=== PATIENT | female | born 1940 | race African-American/Black ===

== ENCOUNTER 2020-01-23 14:27 | Outpatient (REF) | payer OTHER, MEDICAID, SELFPAY ==
[2020-01-24 15:30] LABS: COVID-19 RT-PCR Result Not Detected ((See Note))
== END 2020-01-23 14:47 ==
LOC: LBN 14:27
PROVIDERS: Visit Provider Nurse Practitioner Adult Health
DX: Z20.828 Contact with and (suspected) exposure to other viral communicable diseases (principal)
CPT/HCPCS: U0003

== ENCOUNTER 2020-01-30 17:54 | Outpatient (REF) | payer MEDICARE, MEDICAID, SELFPAY ==
[2020-02-02 08:52] LABS: SARS-CoV-2 RNA Not Detected (NotDetected); SARS-CoV-2 RNA Source Nasal/Nares
== END 2020-01-30 18:14 ==
LOC: LBN 17:54
PROVIDERS: Visit Provider Nurse Practitioner Adult Health
DX: Z11.59 Encounter for screening for other viral diseases (principal)
CPT/HCPCS: U0003

== ENCOUNTER 2020-04-09 12:05 | Outpatient (REF) | payer OTHER, MEDICAID, SELFPAY ==
[2020-04-09 13:52] LABS: Abs Immature Grans 0.01 10^3/uL (0.0-0.06); Absolute Basophil Count 0.04 10^3/uL (0.0-0.2); Absolute Eosinophil Count 0.17 10^3/uL (0.0-0.7); Absolute Lymphocyte Count 3.16 10^3/uL (1.2-3.4); Absolute Monocyte Count 0.88 10^3/uL (0.1-0.8); Absolute Neutrophil Count 4.11 10^3/uL (1.2-6.7); Basophils % 0.5; HGB 13.6 g/dL (11.2-15.7); Immature Grans % 0.1; Lymphocytes % 37.8; MCH 29.6 pg (27.0-33.0); MCHC 32.4 % (32.0-36.0); MCV 91.5 fL (80-95); MPV 9.7 fL (8.0-11.0); Monocytes % 10.5; Neutrophils % 49.1; Nucleated RBC 0 %; Platelet Count 242 10^3/uL (130-400); RBC 4.59 10^6/uL (3.93-5.22); RDW 12.8 % (11.7-14.6); RDW-SD 42.9 fL; WBC 8.37 10^3/uL (4.4-10.8)
[2020-04-09 14:34] LABS: ALT 22 U/L (14-59); AST 32 U/L (15-37); Albumin 3.3 g/dL (3.4-5.0); Alkaline Phosphatase 163 U/L (46-116); Anion Gap 5.4 mmol/L (3-11); BUN 6 mg/dL (7-18); Bilirubin, Total 0.3 mg/dL (0.2-1.0); CO2 33.6 mmol/L (21.0-32.0); CREATININE 0.86 mg/dL (0.55-1.02); Chloride 106 mmol/L (98-107); Folate > 20.0 ng/mL (8.6-20.0); Glucose 74 mg/dL (74-106); Potassium 3.2 mmol/L (3.5-5.1); Sodium 145 mmol/L (136-145); Total Protein 6.7 g/dL (6.4-8.2); Vitamin B12 747 pg/mL (193-986)
== END 2020-04-09 12:25 ==
LOC: LBN 12:05
PROVIDERS: PCP Nurse Practitioner Adult Health; Visit Provider Nurse Practitioner Adult Health
DX: D51.9 Vitamin B12 deficiency anemia, unspecified (principal); E27.40 Unspecified adrenocortical insufficiency
CPT/HCPCS: 80053; 82607; 82746; 84443; 85025

== ENCOUNTER 2020-04-09 14:33 | Outpatient (CLI) | payer OTHER, MEDICAID, SELFPAY ==
--- NOTE | 2020-04-09 14:30 | RT.EKG_ITS ---
APPROVED REPORT Exam: Resting ECG Patient Location: O HR:72 bpm ECG Measurements Heart Rate 72 AXIS WA 170 P 57 QRSd 144 QRS 16 QT 428 T 59 QTc 468 Conclusion Sinus rhythm...normal P axis, V-rate 60- 99 Left bundle branch block...QRSd>120, broad/notched R ST elevation secondary to IVCD...Multiple VCG criteria
== END 2020-04-09 14:53 ==
PROVIDERS: PCP Nurse Practitioner Adult Health; Visit Provider Family Medicine
DX: I44.7 Left bundle-branch block, unspecified (principal); Z13.6 Encounter for screening for cardiovascular disorders; Z02.89 Encounter for other administrative examinations
CPT/HCPCS: 93005; 93010

== ENCOUNTER 2020-04-12 07:10 | Outpatient (REF) | payer OTHER, MEDICAID, SELFPAY | END 2020-04-12 07:30 | LOC: LBN 07:10 | PROVIDERS: PCP Nurse Practitioner Adult Health; Visit Provider Family Medicine | DX: E27.40 Unspecified adrenocortical insufficiency (principal) | CPT/HCPCS: 82533 ==

== ENCOUNTER 2020-04-19 08:12 | Outpatient (REF) | payer OTHER, MEDICAID, SELFPAY ==
[2020-04-19 09:05] LABS: Anion Gap 4.3 mmol/L (3-11); BUN 9 mg/dL (7-18); CO2 29.7 mmol/L (21.0-32.0); CREATININE 0.91 mg/dL (0.55-1.02); Calcium 9.1 mg/dL (8.5-10.1); Chloride 110 mmol/L (98-107); Estimated GFR 59.94 (mL/min/1.73m2); Glucose 86 mg/dL (74-106); Potassium 3.9 mmol/L (3.5-5.1); Sodium 144 mmol/L (136-145)
== END 2020-04-19 08:32 ==
LOC: LBN 08:12
PROVIDERS: PCP Nurse Practitioner Adult Health; Visit Provider Nurse Practitioner Adult Health
DX: E27.49 Other adrenocortical insufficiency (principal)
CPT/HCPCS: 80048; 82533; 82024

== ENCOUNTER 2020-05-15 16:51 | Outpatient (REF) | payer OTHER, MEDICAID, SELFPAY ==
[2020-05-17 16:19] LABS: COVID-19 RT-PCR Result Not Tested ((See Note))
== END 2020-05-15 16:52 | disposition home or self-care (01) ==
LOC: LBN 16:51
PROVIDERS: PCP Nurse Practitioner Adult Health; Visit Provider Nurse Practitioner Adult Health
DX: Z20.822 Contact with and (suspected) exposure to COVID-19 (principal)
CPT/HCPCS: U0003

== ENCOUNTER 2020-05-18 19:54 | Outpatient (REF) | payer OTHER, MEDICAID, SELFPAY ==
[2020-05-21 17:47] LABS: COVID-19 RT-PCR Result Not Detected ((See Note))
== END 2020-05-18 19:55 | disposition home or self-care (01) ==
LOC: LBN 19:54
PROVIDERS: PCP Nurse Practitioner Adult Health; Visit Provider Nurse Practitioner Adult Health
DX: Z20.822 Contact with and (suspected) exposure to COVID-19 (principal)
CPT/HCPCS: U0003

== ENCOUNTER 2020-08-09 01:55 | Outpatient (CLI) | payer OTHER, MEDICAID, SELFPAY ==
--- NOTE | 2020-08-09 08:45 | RT.EKG_ITS ---
APPROVED REPORT Exam: Resting ECG Reason for Exam: edema in left arm Patient Location: O HR:83 bpm ECG Measurements Heart Rate 83 AXIS OH 145 P 20 QRSd 130 QRS 41 QT 429 T 56 QTc 504 Conclusion Sinus rhythm...normal P axis, V-rate 60- 99 Left bundle branch block...QRSd>120, broad/notched R
== END 2020-08-09 01:56 | disposition home or self-care (01) ==
LOC: RT 01:55
PROVIDERS: PCP Nurse Practitioner Adult Health; Visit Provider Family Medicine
DX: I49.9 Cardiac arrhythmia, unspecified (principal); E27.40 Unspecified adrenocortical insufficiency; R60.0 Localized edema
CPT/HCPCS: 93005; 93010

== ENCOUNTER 2020-08-17 03:57 | Outpatient (CLI) | payer OTHER, MEDICAID, SELFPAY ==
--- NOTE | 2020-08-17 08:30 | DI.CT_ITS ---
Exam(s) CT CHEST/ABD/PEL W EXAM: CT CHEST/ABD/PEL W CLINICAL HISTORY: ABNL WT LOSS, R63.4,C50.919 TECHNIQUE: CT examination of the chest, abdomen, and pelvis was performed utilizing intravenous inf usion of 100 cc of Omnipaque 350 with biphasic hepatic imaging. Oral contrast was also administered. COMPARISON: No exams were available for comparison FINDINGS: There are vascular clips in the left breast and left axilla, please correlate regarding the nature of the prior surgery and history of breast carcinoma. There are moderate pulmonary emphysematous changes. There are areas of apparent traction bronchiecta sis particularly in the right upper lobe where there is prominent peripheral scarring. No prior imag es available for comparison. No dominant mass identified in either lung. Multiple small calcified g ranulomas noted. No mediastinal or hilar adenopathy. No axillary or supraclavicular adenopathy. Tracheobronchial feng e appears intact. No evidence of pulmonary embolic disease. Unremarkable appearance of thoracic aorta and major branch vessels. There is question of wall thickening at the gastroesophageal junction with possibility of mucosal ulc eration. There is also question of wall thickening of the gastric antrum. Correlation with endoscop y suggested to exclude GE junction neoplasm or inflammatory process. The liver appears normal with couple of tiny presumed hepatic cysts noted.. Spleen is unremarkable in appearance. Pancreas appears intact. Adrenals appear normal. Kidneys are unremarkable in appearance with no renal mass, hydronephrosis, or nephrolithiasis. Incid ental apparent left renal parapelvic cysts noted. Abdominal aorta and major visceral branches appear intact. No focal bowel pathology. Appendix is normal. No evidence of diverticulitis. No abdominal or pelvic adenopathy. No significant abdominal wall hernia. No focal bony lesion identified on scanning of the chest, abdomen, and pelvis. There are bilateral hip prostheses causing marked artifact which limits evaluation of the pelvis. Th ere is a heterogeneous mid pelvic mass measuring up to about 6 cm in diameter, this may represent a u terine fibroid. Urinary bladder is essentially nonvisualized. The possibility that the mass as described originates from ovary rather than uterus is not excluded. Correlation with pelvic ultrasound recommended. IMPRESSION: Indeterminate mid pelvic mass, incompletely imaged due to artifact from hip prostheses. Probable devan rine fibroid but other etiology not excluded, pelvic ultrasound requested for correlation. Note is also made of question wall thickening/mucosal irregularity at the gastroesophageal junction a nd possible wall thickening of the gastric antrum, neoplastic disease at the GE junction not excluded , correlation with endoscopy recommended. RADIATION DOSE DELIVERED: 1,840.57mGy.cm Total DLP 1,840.57mGy.cm Total DLP RADIATION OPTIMIZATION: All CT scans at this facility use at least one of these dose optimization te chniques: automated exposure control; mA and/or kV adjustment per patient size (includes targeted exa ms where dose is matched to clinical indication); or iterative reconstruction.
[2020-08-17 09:02] LABS: Anion Gap 6.2 mmol/L (3-11); BUN 9 mg/dL (7-18); CO2 29.8 mmol/L (21.0-32.0); CREATININE 1.1 mg/dL (0.55-1.02); Calcium 8.6 mg/dL (8.5-10.1); Chloride 108 mmol/L (98-107); Estimated GFR 48.16 (mL/min/1.73m2); Glucose 84 mg/dL (74-106); Sodium 144 mmol/L (136-145)
[2020-08-17] MEDS: Omnipaque 350 MG/ML 50 ML BTL IJ (09:05)
[2020-08-17] MEDS: Breeza Beverage 473 ML BTL PO (09:07)
[2020-08-17] MEDS: Omnipaque 350 MG/ML 100 ML BTL IJ (10:08)
[2020-08-17] MEDS: Normal Saline - Diluent 50 ML VIAL IV (10:09)
== END 2020-08-17 04:17 ==
PROVIDERS: Family Medicine; PCP Nurse Practitioner Adult Health; Visit Provider Nurse Practitioner Family
DX: R63.4 Abnormal weight loss (principal); Z85.3 Personal history of malignant neoplasm of breast; E27.9 Disorder of adrenal gland, unspecified; Z96.643 Presence of artificial hip joint, bilateral; R19.09 Other intra-abdominal and pelvic swelling, mass and lump; K22.8 Other specified diseases of esophagus
CPT/HCPCS: 74177; 80048; 71260; J3490; Q9967

== ENCOUNTER 2020-10-10 13:13 | Emergency (ER) | payer OTHER, MEDICAID, SELFPAY ==
[2020-10-10] VITALS (15 sets, daily range): BP systolic 168–181; BP diastolic 102–111; PULSE 71–94; RESP 6–24; TEMP 36.1; O2SAT 95–98
--- NOTE | 2020-10-10 13:15 | RT.EKG_ITS ---
APPROVED REPORT Exam: Resting ECG Reason for Exam: fall Patient Location: E HR:83 bpm ECG Measurements Heart Rate 83 AXIS RI 160 P 33 QRSd 132 QRS 26 QT 401 T 63 QTc 473 Conclusion Sinus rhythm...normal P axis, V-rate 60- 99 Atrial premature complex...SV complex w/ short R-R interval Left bundle branch block...QRSd>120, broad/notched R ST elevation secondary to IVCD...Multiple VCG criteria. Sinus. LBBB. No STEMI. No change from previous. I have reviewed and interpreted ECG and agree with software generated interpretation.
--- NOTE | 2020-10-10 13:21 | ED.GENADUL_ITS ---
Discharge Plan Disposition Patient Disposition: HOME Condition: Stable Discharge Details Clinical Impression: Closed head injury, Fall at halfway Primary Care Provider: Razia Tejeda ED Provider: Germaine Arango Home Meds and New Rx's Prescriptions: Continued divalproex 125 mg tablet,delayed release (DR/EC) 125 mg PO DAILY RF: 0 divalproex 125 mg tablet,delayed release (DR/EC) 250 mg PO HS RF: 0 bisacodyl [Dulcolax (bisacodyl)] 10 mg suppository [address] DAILY PRNRF: 0 Fleet Enema 19-7 gram/118 mL enema [address] ONCE RF: 0 folic acid 1 mg tablet 1 mg PO DAILY RF: 0 hydrocortisone 5 mg tablet 2.5 mg PO DAILY RF: 0 hydrocortisone 5 mg tablet 5 mg PO DAILY RF: 0 hydrocortisone 5 mg tablet 10 mg PO DAILY RF: 0 ibuprofen 200 mg tablet 200 mg PO Q6H PRNRF: 0 letrozole 2.5 mg tablet 2.5 mg PO DAILY RF: 0 magnesium hydroxide 400 mg/5 mL suspension 30 ml PO DAILY PRNRF: 0 melatonin 5 mg capsule 5 mg PO HS PRNRF: 0 memantine 5 mg tablet 5 mg PO QAM RF: 0 midodrine 10 mg tablet 10 mg PO DAILY RF: 0 mirtazapine 15 mg tablet 15 mg PO QHS RF: 0 risperidone 0.25 mg tablet 0.25 mg PO BID RF: 0 thiamine HCl (vitamin B1) 100 mg tablet 100 mg PO DAILY RF: 0 venlafaxine 150 mg capsule,extended release 24hr 150 mg PO DAILY RF: 0 sennosides-docusate sodium 8.6-50 mg tablet 1 tab-cap PO QHS RF: 0 Discharge Instructions Instructions: Head Injury (ED) Additional Instructions: Your urine sample noted white blood cells which may mean this is a contaminated sample or may indicate an infection. You will be notified if an infection is present once your urine culture results are available in the next few days. Drink plenty of fluids and get plenty of rest. You can apply ice to your head as needed and directed for pain for 20 minutes at a time. You can continue ibuprofen as needed and directed for pain. Follow-up with your primary care doctor in 1 week for reevaluation and for referral to dermatology for your chronic facial and neck skin rash. Return to the emergency department with any worsening or new concerning symptoms. 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 Fall was unwitnessed and patient does not recall the details of the fall. No evidence of head trauma. Lungs clear. Abdomen soft nontender. No midline spinal tenderness. No focal deficits. Considering patient's age and history, will obtain screening labs, EKG, urinalysis, CT head and cervical spine, chest x-ray and pelvis x-ray. Labs and imaging reviewed. Normal white blood cell count. Normal electrolytes. Urinalysis notes 5-10 WBCs, urine culture sent. CT head and cervical spine negative. Chest x-ray and pelvis x-ray negative. Patient given fluids and Toradol and admitted to improvement of pain. Will discharge back to the rehab. Advised to follow up with the primary care doctor for re-evaluation. Usual and customary return precautions given prior to discharge. Medical Records Medical records reviewed: Yes I reviewed the patient's medical records. Imaging Data Radiologic Study: Radiologist's impression: CT HEAD CERVICAL SPINE WO CLINICAL HISTORY: s/p head injury, r/o acute injury. TECHNIQUE: Imaging Protocol: Axial computed tomography images with coronal and sagittal reformatted images were created and reviewed COMPARISON: No exams were available for comparison FINDINGS: BRAIN: There are no skull fractures nor fluid in the visualized paranasal sinuses. There is no evidence of intracranial hemorrhage, mass effect, or shift of midline structures. There are no extra-axial fluid collections. The ventricles are not enlarged or shifted and there is no blood within the ventricular system nor within the basal cisterns. There is some mild periventricular hypodensity consistent with chronic small vessel disease. CERVICAL SPINE: There is evidence of previous surgery with multilevel fusion wires around posterior osseous elements at C 5, C6, C7, and T1 levels. No evidence of acute fractures nor listhesis at these levels. There is discontinuity in the anterior arch of C1 which is developmental. There is also discontinuity on the right side of the posterior arch of C1 which is also developmental. No compromise of the canal at this level. No acute fractures evident. Multilevel facet arthropathy in the spine above the fusion levels. This is evident at C2-3 and C3-4 levels. There is no significant facet joint malalignment. No significant osseous lesions evident. Scarring in the right lung apex incidentally noted. IMPRESSION: No acute intracranial findings on this noninfused CT scan of the brain. No evidence of acute cervical spine fracture, malalignment, nor acute compromise of the cervical spinal canal. Multilevel posterior fusion surgery as described above in the mid-lower cervical spine as well as developmental discontinuity of C1 arch anteriorly and on the right side. XR PELVIS AP CLINICAL HISTORY: s/p fall, r/o fx. TECHNIQUE: 2D digital imaging was performed. COMPARISON: CT CT CHEST/ABD/PEL W from 08/17/[address] CHEST/ABD/PEL W from 08/17/2020 FINDINGS: Bilateral hip prostheses are noted. There is deformity of the right greater trochanter which is unchanged from prior CT scan. Lucency around the upper femoral component on the left side is also unchanged from 08/17/2020 CT scan There is no evidence of acute fracture on either side. Finding in the ischial tuberosity right size as chronic appearance. Sacroiliac joints appear unremarkable. IMPRESSION: Findings as above but no acute fractures evident. XR CHEST 2V PA LATERAL CLINICAL HISTORY: s/p fall, r/o acute fx. TECHNIQUE: 2D digital imaging was performed. COMPARISON: No exams were available for comparison FINDINGS: Heart size is normal. The mediastinum is not widened. Lungs are clear. No infiltrates nor pleural effusions. Left shoulder prosthesis. Posterior fusion rods in the lower cervical upper thoracic spine noted. IMPRESSION: No acute pulmonary findings. Lab Data Lab results reviewed: Yes I reviewed the patient's lab results. Labs: 10/10/20 14:00 Urine - Reflex from Ua Urine Culture - Pending Laboratory Tests Range/Units 10/10/20 10/10/20 10/10/20 13:45 13:45 14:00 WBC (4.4-10.8) 10^3/uL 7.55 RBC (3.93-5.22) 10^6/uL 4.54 Hgb (11.2-15.7) g/dL 13.2 Hct (36.0-46.0) % 40.8 MCV (80-95) fL 89.9 MCH (27.0-33.0) pg 29.1 MCHC (32.0-36.0) % 32.4 RDW (11.7-14.6) % 13.8 Plt Count (130-400) 10^3/uL 204 MPV (8.0-11.0) fL 9.1 Immature Gran % 0.5 Neutrophils % 73.1 Lymphocytes % 18.3 Monocytes % 7.3 Eosinophils % 0.4 Basophils % 0.4 Nucleated RBC % % 0 Absolute Neutrophils (1.2-6.7) 10^3/uL 5.52 Absolute Lymphocytes (1.2-3.4) 10^3/uL 1.38 Absolute Monocytes (0.1-0.8) 10^3/uL 0.55 Absolute Eosinophils (0.0-0.7) 10^3/uL 0.03 Absolute Basophils (0.0-0.2) 10^3/uL 0.03 Sodium (136-145) mmol/L 142 Potassium (3.5-5.1) mmol/L 3.6 Chloride (98-107) mmol/L 106 Carbon Dioxide (21.0-32.0) mmol/L 26.1 Anion Gap (3-11) mmol/L 9.9 BUN (7-18) mg/dL 9 Creatinine (0.55-1.02) mg/dL 1.2 H Estimated GFR/1.73 m2 (mL/min/1.73m2) 43.56 Glucose (74-106) mg/dL 104 Calcium (8.5-10.1) mg/dL 9.7 Total Bilirubin (0.2-1.0) mg/dL 0.7 AST (15-37) U/L 19 ALT (14-59) U/L 17 Alkaline Phosphatase (46-116) U/L 86 Total Protein (6.4-8.2) g/dL 7.4 Albumin (3.4-5.0) g/dL 3.6 Urine Color (Yellow) Yellow Urine Clarity (Clear) Clear Urine pH (5-8) 7.0 Ur Specific [place] (1.005-1.025) 1.015 Urine Protein (Negative) mg/dL Negative Urine Ketones (Negative) mg/dL Negative Urine Blood (Negative) Trace-intact H Urine Nitrite (Negative) Negative Urine Bilirubin (Negative) Negative Urine Urobilinogen (Up TO 0.2) EU/dL 0.2 Ur Leukocyte Esterase (Negative) Small H Urine RBC (0-2) HPF 3-5 H Urine WBC (0-5) HPF 5-10 Ur Epithelial Cells (Negative) HPF Rare Urine Crystals (Negative) HPF Negative Urine Bacteria (Negative) HPF Rare Urine Casts (Negative) LPF Negative Urine Mucus (Negative) Trace Ur Culture Indicated? Yes Urine Glucose (Negative) mg/dL Negative ECG Data Attestation: I personally reviewed and interpreted this ECG (s) as follows: Interpretation: rate of 83bpm, sinus, LBBB, no change from previous, No STEMI. HPI General Mode of arrival: ambulatory . Date/Time Provider Initiated Documentation: 10/10/20 13:20 . Limitations to Documentation: no limitations . Information obtained by: patient . HPI Narrative: Patient is a 79-year-old female from the [facility] rehab who presents for a fall out of her wheelchair. Patient does not recall the fall. Staff reported that patient had an unwitnessed fall out of her wheelchair when she fell forward striking her head. Patient complained of headache. There was no report of LOC or vomiting. Patient denies any other acute complaints. She does have dementia at baseline. She denies any chest pain, shortness of breath, abdominal pain, neck or back pain. Related Data Home Medications Medication Instructions Recorded Confirmed bisacodyl 10 mg rectal suppository [address] DAILY PRN 10/02/20 10/10/20 divalproex 125 mg tablet,delayed 125 mg PO DAILY tab 10/02/20 10/10/20 release divalproex 125 mg tablet,delayed 250 mg PO HS tab 10/02/20 10/10/20 release folic acid 1 mg tablet 1 mg PO DAILY 10/02/20 10/10/20 hydrocortisone 5 mg tablet 2.5 mg PO DAILY tab 10/02/20 10/10/20 hydrocortisone 5 mg tablet 5 mg PO DAILY tab 10/02/20 10/10/20 hydrocortisone 5 mg tablet 10 mg PO DAILY tab 10/02/20 10/10/20 ibuprofen 200 mg tablet 200 mg PO Q6H PRN 10/02/20 10/10/20 letrozole 2.5 mg tablet 2.5 mg PO DAILY 10/02/20 10/10/20 magnesium hydroxide 400 mg/5 mL 30 ml PO DAILY PRN ml 10/02/20 10/10/20 oral suspension melatonin 5 mg capsule 5 mg PO HS PRN cap 10/02/20 10/10/20 memantine 5 mg tablet 5 mg PO QAM 10/02/20 10/10/20 midodrine 10 mg tablet 10 mg PO DAILY tab 10/02/20 10/10/20 mirtazapine 15 mg tablet 15 mg PO QHS 10/02/20 10/10/20 risperidone 0.25 mg tablet 0.25 mg PO BID 10/02/20 10/10/20 sennosides 8.6 mg-docusate sodium 1 tab-cap PO QHS 10/02/20 10/10/20 50 mg tablet sodium phosphates 19 gram-[address] ONCE 10/02/20 10/10/20 gram/118 mL enema thiamine HCl (vitamin B1) 100 mg 100 mg PO DAILY 10/02/20 10/10/20 tablet venlafaxine 150 mg 150 mg PO DAILY 10/02/20 10/10/20 capsule,extended release 24 hr Allergies Allergy/AdvReac Type Severity Reaction Status Date / Time acetaminophen Allergy Unknown unknown Verified 10/02/20 14:39 oxycodone Allergy Unknown unknown Verified 10/02/20 14:39 Penicillins Allergy Unknown unknown Verified 10/02/20 14:39 propoxycaine Allergy Unknown unknown Verified 10/02/20 14:39 Review of Systems All systems reviewed & are unremarkable except as noted in HPI and below Constitutional Constitutional: Reports as per HPI, Denies chills, Denies fever(s) and Reports headache(s) Eyes Eyes: Denies blurry vision ENT Ears, Nose, Mouth, and Throat: Denies dizziness, Reports headache(s), Denies sore throat and Denies throat swelling Cardiovascular Cardiovascular: Denies chest pain and Denies dyspnea Respiratory Respiratory: Denies cough and Denies dyspnea Gastrointestinal Gastrointestinal: Denies abdominal pain, Denies diarrhea and Denies vomiting Genitourinary Genitourinary: Denies hematuria and Denies dysuria Musculoskeletal Musculoskeletal: Denies back pain and Denies numbness Integumentary/Breasts Skin/Breast: Denies lesions and Denies rash Neurologic Neurologic: Denies dizziness, Reports headache(s), Denies localized weakness and Denies numbness Allergic/Immunologic Allergic/Immunologic: Denies throat swelling [facility] Medical History (Updated 10/10/20 @ 15:28 by Germaine Arango DO) Personal history of breast cancer Social History Smoking risk assessment performed?: No Alcohol Intake: former Exam Const General: cooperative and no acute distress HENMT Head: normal to inspection, no palpable skull fracture, normocephalic and atraumatic Ears: hearing grossly normal bilaterally, external ears normal and TM's normal bilaterally General nose exam: external nose normal Face and sinus: normal facial exam Mouth: oral mucosae normal Teeth and gingiva: dentures Throat: posterior oropharynx normal Eyes General: appearance normal, both eyes and all related structures Pupils: PERRL EOM: EOM intact bilaterally Neck Neck: normal visual inspection and No submandibular swelling Lymphatic: no lymphadenopathy noted Chest Chest: normal inspection of the chest and no tenderness Resp Effort & Inspection: normal respiratory effort and able to speak in complete sentences Auscultation: clear to auscultation bilaterally Cardio Rate: regular rate Rhythm: regular rhythm GI Inspection: normal to inspection Palpation: soft, not firm, not rigid and nontender Auscultation: normal bowel sounds Back/Spine/Pelvis Cervical Spine: No cervical spinal tenderness Thoracic/Lumbar Spine: thoracic and lumbar spine normal to inspection, No thoracic spinal tenderness and No lumbar spinal tenderness Pelvis: no pain with anterior-posterior compression Skin General skin exam: no rashes or lesions noted Neuro General: patient alert, patient awake and oriented Patient Orientation: Person and Place Cognition: normal cognition Speech: speech normal Motor: muscle tone normal throughout Sensory Exam: no sensory deficits noted Extrem General: normal to inspection, full ROM, capillary refill normal, no calf tenderness bilaterally and no edema Other: Full range of motion of bilateral upper extremities without pain or deformity. Minimal pain with range of motion at hips bilaterally. No deformity, leg shortening or external rotation. Bilateral distal pulses intact. Psych Appearance: grossly normal Mental Status: mental status grossly normal Speech and Movement: speech and movement normal Affect: normal affect
--- NOTE | 2020-10-10 13:45 | DI.RAD_ITS ---
Exam(s) XR CHEST 2V PA LATERAL EXAM: XR CHEST 2V PA LATERAL CLINICAL HISTORY: s/p fall, r/o acute fx. TECHNIQUE: 2D digital imaging was performed. COMPARISON: No exams were available for comparison FINDINGS: Heart size is normal. The mediastinum is not widened. Lungs are clear. No infiltrates nor pleural effusions. Left shoulder prosthesis. Posterior fusion rods in the lower cervical upper thoracic spine noted. IMPRESSION: No acute pulmonary findings. DATA REPOSITORY: RADIATION DOSE DELIVERED:
--- NOTE | 2020-10-10 13:45 | DI.CT_ITS ---
Exam(s) CT HEAD CERVICAL SPINE WO EXAM: CT HEAD CERVICAL SPINE WO CLINICAL HISTORY: s/p head injury, r/o acute injury. TECHNIQUE: Imaging Protocol: Axial computed tomography images with coronal and sagittal reformatted images were created and reviewed COMPARISON: No exams were available for comparison FINDINGS: BRAIN: There are no skull fractures nor fluid in the visualized paranasal sinuses. There is no evidence of intracranial hemorrhage, mass effect, or shift of midline structures. There are no extra-axial fluid collections. The ventricles are not enlarged or shifted and there is no blo od within the ventricular system nor within the basal cisterns. There is some mild periventricular hypodensity consistent with chronic small vessel disease. CERVICAL SPINE: There is evidence of previous surgery with multilevel fusion wires around posterior osseous elements at C 5, C6, C7, and T1 levels. No evidence of acute fractures nor listhesis at these levels. There is discontinuity in the anterior arch of C1 which is developmental. There is also discontinuity on t he right side of the posterior arch of C1 which is also developmental. No compromise of the canal at this level. No acute fractures evident. Multilevel facet arthropathy in the spine above the fusion levels. This is evident at C2-3 and C3-4 levels. There is no significant facet joint malalignment. No significant osseous lesions evident. Scarring in the right lung apex incidentally noted. IMPRESSION: No acute intracranial findings on this noninfused CT scan of the brain. No evidence of acute cervical spine fracture, malalignment, nor acute compromise of the cervical spin al canal. Multilevel posterior fusion surgery as described above in the mid-lower cervical spine as well as dev elopmental discontinuity of C1 arch anteriorly and on the right side. RADIATION DOSE DELIVERED: 1,624.01mGy.cm Total DLP DATA REPOSITORY: All CT scans at this facility are submitted to the National Radiology Data Registry (NRDR) Dose Index Registry (DIR) with the [employer] ([employer]). RADIATION OPTIMIZATION: All CT scans at this facility use at least one of these dose optimization te chniques: automated exposure control; mA and/or kV adjustment per patient size (includes targeted exa ms where dose is matched to clinical indication); or iterative reconstruction.
--- NOTE | 2020-10-10 13:45 | DI.RAD_ITS ---
Exam(s) XR PELVIS AP EXAM: XR PELVIS AP CLINICAL HISTORY: s/p fall, r/o fx. TECHNIQUE: 2D digital imaging was performed. COMPARISON: CT CT CHEST/ABD/PEL W from 08/17/[address] CHEST/ABD/PEL W from 08/17/2020 FINDINGS: Bilateral hip prostheses are noted. There is deformity of the right greater trochanter which is unch anged from prior CT scan. Lucency around the upper femoral component on the left side is also unchan ged from 08/17/2020 CT scan There is no evidence of acute fracture on either side. Finding in the ischial tuberosity right size as chronic appearance. Sacroiliac joints appear unremarkable. IMPRESSION: Findings as above but no acute fractures evident. DATA REPOSITORY: RADIATION DOSE DELIVERED:
[2020-10-10 14:06] LABS: Abs Immature Grans 0.04 10^3/uL (0.0-0.06); Absolute Basophil Count 0.03 10^3/uL (0.0-0.2); Absolute Eosinophil Count 0.03 10^3/uL (0.0-0.7); Absolute Lymphocyte Count 1.38 10^3/uL (1.2-3.4); Absolute Monocyte Count 0.55 10^3/uL (0.1-0.8); Absolute Neutrophil Count 5.52 10^3/uL (1.2-6.7); Basophils % 0.4; Eosinophils % 0.4; HCT 40.8 % (36.0-46.0); HGB 13.2 g/dL (11.2-15.7); Immature Grans % 0.5; Lymphocytes % 18.3; MCH 29.1 pg (27.0-33.0); MCHC 32.4 % (32.0-36.0); MCV 89.9 fL (80-95); MPV 9.1 fL (8.0-11.0); Monocytes % 7.3; Neutrophils % 73.1; Nucleated RBC 0 %; Platelet Count 204 10^3/uL (130-400); RBC 4.54 10^6/uL (3.93-5.22); RDW 13.8 % (11.7-14.6); RDW-SD 45.3 fL; WBC 7.55 10^3/uL (4.4-10.8)
[2020-10-10 14:07] LABS: Bilirubin Negative (Negative); Blood Trace-intact (Negative); Clarity Clear (Clear); Glucose Negative (Negative); Ketones Negative (Negative); Leukocyte Esterase Small (Negative); Nitrite Negative (Negative); Specific Gravity 1.015 (1.005-1.025); Urobilinogen 0.2 EU/dL (Up TO 0.2)
[2020-10-10 14:14] LABS: Bacteria Rare HPF (Negative); C & S Indicated? Yes; Casts Negative LPF (Negative); Crystals Negative HPF (Negative); Epithelial Cells Rare HPF (Negative); Mucus Trace (Negative)
[2020-10-10 14:26] LABS: ALT 17 U/L (14-59); AST 19 U/L (15-37); Albumin 3.6 g/dL (3.4-5.0); Alkaline Phosphatase 86 U/L (46-116); Anion Gap 9.9 mmol/L (3-11); BUN 9 mg/dL (7-18); Bilirubin, Total 0.7 mg/dL (0.2-1.0); CO2 26.1 mmol/L (21.0-32.0); CREATININE 1.2 mg/dL (0.55-1.02); Calcium 9.7 mg/dL (8.5-10.1); Chloride 106 mmol/L (98-107); Estimated GFR 43.56 (mL/min/1.73m2); Glucose 104 mg/dL (74-106); Potassium 3.6 mmol/L (3.5-5.1); Sodium 142 mmol/L (136-145); Total Protein 7.4 g/dL (6.4-8.2)
[2020-10-10] MEDS: Ketorolac 30 MG/ML VIAL IVP (15:20)
[2020-10-10] MEDS: Normal Saline 500 ML IV (15:20)
== END 2020-10-10 16:13 | disposition home or self-care (01) ==
PROVIDERS: Emergency Provider Physician Assistant; PCP Nurse Practitioner Adult Health
DX: S09.8XXA Other specified injuries of head, initial encounter (principal); W18.39XA Other fall on same level, initial encounter
CPT/HCPCS: 80053; 93005; 96361; 96374; 99285; 70450; 71046; 72125; 72170; 81003; 81015; 85025; 87086; 93010; 99284; J1885

== ENCOUNTER → 2020-10-16 10:34 | Outpatient (BNVA) | payer OTHER, MEDICAID, SELFPAY | PROVIDERS: PCP Nurse Practitioner Adult Health; Referring Provider Nurse Practitioner Adult Health; Visit Provider Surgery | DX: R69 Illness, unspecified (principal) ==

== ENCOUNTER → 2020-10-26 11:00 | Outpatient (BNVA) | payer OTHER, MEDICAID, SELFPAY | PROVIDERS: PCP Nurse Practitioner Adult Health; Referring Provider Nurse Practitioner Adult Health; Visit Provider Surgery | DX: R93.3 Abnormal findings on diagnostic imaging of other parts of digestive tract (principal) | CPT/HCPCS: 99202; 99213 ==

== ENCOUNTER 2020-11-09 16:12 | Outpatient (REF) | payer OTHER, MEDICAID, SELFPAY ==
[2020-11-11 01:45] LABS: COVID-19 RT-PCR UVMMC Result Negative (Negative)
== END 2020-11-09 16:13 | disposition home or self-care (01) ==
LOC: LBN 16:12
PROVIDERS: PCP Family Medicine; Visit Provider Family Medicine
DX: Z20.822 Contact with and (suspected) exposure to COVID-19 (principal)
CPT/HCPCS: U0003

== ENCOUNTER 2020-11-16 14:42 | Outpatient (REF) | payer OTHER, MEDICAID, SELFPAY ==
[2020-11-16 15:21] LABS: HCT 39.8 % (36.0-46.0); HGB 12.7 g/dL (11.2-15.7); MCH 29.3 pg (27.0-33.0); MCHC 31.9 % (32.0-36.0); MCV 91.7 fL (80-95); MPV 9.4 fL (8.0-11.0); Platelet Count 198 10^3/uL (130-400); RBC 4.34 10^6/uL (3.93-5.22); RDW 13.4 % (11.7-14.6); RDW-SD 45.9 fL; WBC 6.45 10^3/uL (4.4-10.8)
[2020-11-16 15:54] LABS: ALT 12 U/L (14-59); AST 14 U/L (15-37); Albumin 3.6 g/dL (3.4-5.0); Alkaline Phosphatase 105 U/L (46-116); Anion Gap 9.3 mmol/L (3-11); BUN 6 mg/dL (7-18); Bilirubin, Total 0.3 mg/dL (0.2-1.0); CO2 25.7 mmol/L (21.0-32.0); CREATININE 1.1 mg/dL (0.55-1.02); Calcium 9.2 mg/dL (8.5-10.1); Chloride 108 mmol/L (98-107); Estimated GFR 48.04 (mL/min/1.73m2); Glucose 96 mg/dL (74-106); Potassium 4.1 mmol/L (3.5-5.1); Sodium 143 mmol/L (136-145); Total Protein 6.6 g/dL (6.4-8.2)
[2020-11-16 16:45] LABS: Hemoglobin A1C 5.3 % (<5.7)
== END 2020-11-16 14:43 | disposition home or self-care (01) ==
LOC: LBN 14:42
PROVIDERS: PCP Family Medicine; Visit Provider Family Medicine
DX: D64.9 Anemia, unspecified (principal); E61.2 Magnesium deficiency; E16.2 Hypoglycemia, unspecified
CPT/HCPCS: 80053; 85027; 83036